=== PATIENT | male | born 1985 | race Caucasian/White ===

== ENCOUNTER 2019-07-22 12:28 | Emergency (ER) | payer MEDICAID, SELFPAY ==
[2019-07-22 12:29] VITALS: BP 209/116; PULSE 99; RESP 16; TEMP 36.3; O2SAT 97; BMI 40.8
[2019-07-22 12:38] VITALS: BP 198/117
--- NOTE | 2019-07-22 12:41 | EKG12_ITS ---
Test Reason : HYPERTENSION Blood Pressure : / mmHG Vent. Rate : 088 BPM Atrial Rate : 088 BPM P-R Int : 144 ms QRS Dur : 096 ms QT Int : 364 ms P-R-T Axes : 055 050 032 degrees QTc Int : 440 ms Normal sinus rhythm Normal ECG Confirmed by HANG PRINGLE ([id number]), magazine editor VLADIMIR DEXTER ([id number]) on 07/26/2019 2:52:27 PM Referred By: MANUEL
[2019-07-22] MEDS: Lisinopril 10 MG Tablet PO (12:51)
[2019-07-22 13:10] LABS: Anion Gap 5 (5-15); BUN 17 mg/dL (7-18); BUN/Creat Ratio 15.2 RATIO (10-20); Calcium,Total 9.4 mg/dL (8.5-10.1); Chloride 106 mmol/L (98-107); Creatinine, Serum 1.12 mg/dL (0.70-1.30); EST Glomerular Filtration Rate 79 mL/min (>60); Est Glom Filt Rate - Afr Amer 96 mL/min (>60); Estimated Creatinine Clearance 95.96 ml/min; Glucose 127 mg/dL (74-106); Potassium 3.9 mmol/L (3.5-5.1); Sodium Level 141 mmol/L (136-145)
--- NOTE | 2019-07-22 13:30 | ED.DCSUM_ITS ---
History of Present Illness Chief Complaint: Hypertension Narrative: Patient presenting for evaluation secondary to headache and concerns for hypertension. Patient reports that he has a family history of hypertension. He states that over the course of the last 3 or 4 weeks he has been dealing with frequent headaches. He associates it with pain in his temples that is throbbing of bilateral and comes and goes. Is also associated with some mild neck pain. Patient states that recently he has been having some issues with photophobia. He denies any nausea or vomiting. He denies any visual deficits. He denies any numbness or weakness. Patient states that he has been having some intermittent issues with shortness of breath, but denies any chest pain associated with it. No abnormal swelling of the legs. Patient is not on any sort of medications. He does smoke as well as use alcohol. Patient reports that he has had decreased sleep recently as he has an 8-week-old child. Review of systems otherwise negative. Past Medical History - Allergies and Home Meds Allergies/Adverse Reactions: Allergies sulfamethoxazole [From ] Allergy (Verified 07/22/19 12:29) Shortness of breath trimethoprim [From ] Allergy (Verified 07/22/19 12:29) Shortness of breath Primary Care Physician: NOT,DEFINED [Primary Care Provider] - Past Medical History: None Smoking Status: Current every day smoker Review of Systems All systems negative except as indicated General: Denies: Chills, Fever, Sweats Eyes: Denies: Visual changes - bilaterally, Diplopia ENT: Denies: Rhinorrhea, Sore throat Cardiovascular: Denies: Chest pain, Palpitations Respiratory: Reports: Dyspnea Gastrointestinal: Denies: Abdominal pain, Nausea, Vomiting, Diarrhea, Melena, Hematochezia Genitourinary: Denies: Dysuria, Hematuria, Frequency Musculoskeletal: Denies: Back pain, Extremity Pain Skin: Denies: Rash, Wounds Neurological: Reports: Headache Physical Exam Vital Signs/Narrative: Vital Signs Temp Pulse Resp BP Pulse Ox 07/22/19 12:38 198/117 H 07/22/19 12:29 97.3 F L 99 16 209/116 H 97 Inital Vital Signs reviewed: Yes General: Well nourished, Well developed, No Acute Distress Head: Normocephalic, Atraumatic Eyes: Perrl, EOMI, - - Normal for endoscopy without any evidence of retinal hemorrhages or papilledema. 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 ENT: Moist mucous membranes, No rhinorrhea Neck: Supple, Nontender Cardiovascular: Regular rate, Regular rhythm, No murmurs Respiratory: No distress, CTA bilaterally, Chest nontender Abdomen: Soft, Nontender, Nondistended, Normal bowel sounds Back: Nontender, Normal Inspection Extremities: Nontender, No edema Skin: Normal color, No rash Neurological: Alert, Oriented x3, Cranial nerves II-XII grossly intact, Normal Strength, Normal Sensation Psychological: Normal affect, Normal Mood Diagnostic/Tx/Re-eval - EKG Initial EKG Interpretation: - - Normal sinus rhythm with a rate of 88. Isoelectric ST segme nts normal T waves. No evidence of acute ischemia or arrhythmia. - Medical Decision Making Patient presented secondary to hypertension. Triage blood pressure was in the 200s, when he came into the room his BP was 198/117. Patient was given 10 mg of oral lisinopril. Work-up for endorgan damage was performed, EKG was found to be negative. Chemistry shows no evidence of kidney injury, troponin found to be negative. Patient's blood pressure is downward trending with a BP of 180/110 upon repeat evaluation at 1330. Patient is still having somewhat of a headache he was given Tylenol. This point he has no signs of endorgan damage and I believe that he requires admission, but especially with his diastolic blood pressure being so high I do believe that he requires treatment with antihypertensives. Patient will be started on lisinopril. He is instructed that he needs to follow-up with primary care to ensure that his blood pressure meds are working adequately. Patient was discharged in stable condition. ED Disposition - Plan for ED Patient: Disposition: Home or Assisted Living Diagnosis: Hypertension Instructions: HYPERTENSION, New (Begin Treatment) Prescriptions: Lisinopril [Zestril] 10 mg PO DAILY #30 tab Prescription Printed Referrals: Lee Melendez Jr. [NON-STAFF] - 1 Week
[2019-07-22 14:17] VITALS: BP 168/112; PULSE 88; RESP 16
== END 2019-07-22 14:18 | disposition home or self-care (01) ==
LOC: ED 13:40
PROVIDERS: Emergency Provider Emergency Medicine
DX: I10 Essential (primary) hypertension (principal); F17.200 Nicotine dependence, unspecified, uncomplicated; Z72.89 Other problems related to lifestyle
CPT/HCPCS: 36415; 80048; 84484; 93005; 99283

== ENCOUNTER → 2020-12-31 10:03 | Outpatient (CLI) | payer MEDICAID, SELFPAY ==
[2020-12-31 11:00] LABS: Hemoglobin 14.9 g/dL (13.0-16.5); Mean Corp Hgb Conc 33.9 g/dL (32-36); Mean Corpuscular Hgb 30.8 pg (27.0-32.0); Mean Corpuscular Volume 91.1 fL (80-94); Mean Platelet Vol. 10.9 fl (6.2-12.0); Platelet Count 157 K/mm3 (150-450); RBC Distribution Width CV 13.3 % (11.6-14.6); RBC Distribution Width SD 44.8 fl (35.1-43.9); Red Blood Count 4.83 M/mm3 (4.6-6.2); White Blood Count 7.7 K/mm3 (4.4-11.0)
[2020-12-31 11:26] LABS: ALB/GLOB Ratio 1.2 RATIO (0.9-2.4); AST(SGOT) 46 U/L (15-37); Alanine Aminotransfer ALT/SGPT 104 U/L (16-61); Albumin, Serum 4.1 g/dL (3.2-5.0); Alkaline Phosphatase 89 U/L (45-117); Anion Gap 7 (5-15); BUN 13 mg/dL (7-18); BUN/Creat Ratio 14.5 RATIO (10-20); Calcium,Total 8.9 mg/dL (8.5-10.1); Chloride 105 mmol/L (98-107); Cholesterol 194 mg/dL (200); EST Glomerular Filtration Rate 102 mL/min (>60); Est Glom Filt Rate - Afr Amer 123 mL/min (>60); Globulin 3.4 g/dL (2.2-4.2); Glucose 107 mg/dL (74-106); High Density Lipoprotein 33 mg/dL; Potassium 3.8 mmol/L (3.5-5.1); Protein, Total 7.5 g/dL (6.4-8.2); Sodium Level 141 mmol/L (136-145); Triglycerides 165 mg/dL; Very Low Density Lipoprotein 33 mg/dL (5-40)
== END ==
PROVIDERS: PCP Nurse Practitioner Family; Referring Provider Nurse Practitioner Family; Visit Provider Nurse Practitioner Family
DX: I10 Essential (primary) hypertension (principal); Z13.220 Encounter for screening for lipoid disorders
CPT/HCPCS: 36415; 80053; 80061; 85027

== ENCOUNTER → 2021-07-08 13:16 | Outpatient (CLI) | payer MEDICAID, SELFPAY ==
[2021-07-08 13:32] LABS: Hematocrit 44.7 % (40-54); Hemoglobin 14.9 g/dL (13.0-16.5); Mean Corp Hgb Conc 33.3 g/dL (32-36); Mean Corpuscular Volume 92.9 fL (80-94); Mean Platelet Vol. 10.4 fl (6.2-12.0); Platelet Count 167 K/mm3 (150-450); RBC Distribution Width CV 13.3 % (11.6-14.6); RBC Distribution Width SD 46.2 fl (35.1-43.9); Red Blood Count 4.81 M/mm3 (4.6-6.2); White Blood Count 7.1 K/mm3 (4.4-11.0)
[2021-07-08 14:11] LABS: ALB/GLOB Ratio 1.1 RATIO (0.9-2.4); AST(SGOT) 61 U/L (15-37); Alanine Aminotransfer ALT/SGPT 128 U/L (16-61); Alkaline Phosphatase 99 U/L (45-117); Anion Gap 4 (5-15); BUN 15 mg/dL (7-18); Calcium,Total 9.2 mg/dL (8.5-10.1); Chloride 109 mmol/L (98-107); Creatinine, Serum 1.07 mg/dL (0.70-1.30); EST Glomerular Filtration Rate 83 mL/min (>60); Est Glom Filt Rate - Afr Amer 100 mL/min (>60); Globulin 3.7 g/dL (2.2-4.2); Glucose 102 mg/dL (74-106); Protein, Total 7.7 g/dL (6.4-8.2); Sodium Level 142 mmol/L (136-145)
== END ==
PROVIDERS: PCP Nurse Practitioner Family; Referring Provider Nurse Practitioner Family; Visit Provider Nurse Practitioner Family
DX: I10 Essential (primary) hypertension (principal); R63.8 Other symptoms and signs concerning food and fluid intake; R94.5 Abnormal results of liver function studies; R73.01 Impaired fasting glucose
CPT/HCPCS: 36415; 80053; 85027

== ENCOUNTER 2021-08-05 09:55 | Outpatient (CLI) | payer MEDICAID, SELFPAY ==
--- NOTE | 2021-08-05 09:58 | US_ITS ---
STUDY: ABDOMINAL ULTRASOUND - RIGHT UPPER QUADRANT REASON FOR VISIT: Male, 35 years old ELEVATED ENZYMES TECHNIQUE: Ultrasound evaluation of the right upper quadrant was performed with real-time and static robles-scale imaging. TECHNICAL QUALITY: Adequate. COMPARISON: None. FINDINGS: Liver: The liver is enlarged and measures 20 cm. There is increased echogenicity consistent with fatty infiltration. The bile ducts are within normal limits. There is hepatic color flow. The direction of portal flow is hepatopetal. There is no demonstrated mass lesion. Gallbladder: Normal distended gallbladder. The gallbladder wall measures 2.1 mm. There is a negative sonographic Gama''s sign. There is no pericholecystic fluid. There are no gallstones. Common Bile Duct (C.B.D.): The common bile duct measures 4 mm. Pancreas: Normal size of the head, body and tail of the pancreas. There is increased echogenicity of the pancreas. There is no demonstrated pancreatic mass or cyst. Right Kidney: Normal size of the right kidney. The right kidney measures 13.2 cm x 6.6 cm x 5.3 cm. Normal renal cortex. The right cortex measures 1.5 cm. There is no demonstrated renal mass or cyst. There is no right hydronephrosis. US/Abdomen Limited IMPRESSION: Hepatomegaly and diffuse fatty infiltration of the liver. Electronically Signed: Xu Villagomez MD at 10:56 EST , Service support ,
== END 2021-08-05 23:59 | disposition short-term general hospital (02) ==
LOC: US 09:56
PROVIDERS: PCP Nurse Practitioner Family; Referring Provider Nurse Practitioner Family; Visit Provider Nurse Practitioner Family
DX: K76.0 Fatty (change of) liver, not elsewhere classified (principal); R16.0 Hepatomegaly, not elsewhere classified; R94.5 Abnormal results of liver function studies
CPT/HCPCS: 76705

== ENCOUNTER → 2022-01-28 | Outpatient (CLI) | payer MEDICAID, SELFPAY ==
[2022-01-28 13:01] LABS: Hematocrit 47.6 % (40-54); Hemoglobin 15.7 g/dL (13.0-16.5); Mean Corpuscular Hgb 30.3 pg (27.0-32.0); Mean Corpuscular Volume 91.9 fL (80-94); Mean Platelet Vol. 11.1 fl (6.2-12.0); Platelet Count 187 K/mm3 (150-450); RBC Distribution Width CV 13.5 % (11.6-14.6); RBC Distribution Width SD 46.4 fl (35.1-43.9); Red Blood Count 5.18 M/mm3 (4.6-6.2); White Blood Count 8.6 K/mm3 (4.4-11.0)
[2022-01-28 13:27] LABS: ALB/GLOB Ratio 1.1 RATIO (0.9-2.4); AST(SGOT) 47 U/L (15-37); Alanine Aminotransfer ALT/SGPT 100 U/L (16-61); Albumin, Serum 3.9 g/dL (3.2-5.0); Alkaline Phosphatase 88 U/L (45-117); Amylase 35 U/L (25-115); Anion Gap 2 (5-15); BUN 10 mg/dL (7-18); BUN/Creat Ratio 11.2 RATIO (10-20); Calcium,Total 8.8 mg/dL (8.5-10.1); Chloride 108 mmol/L (98-107); Cholesterol 191 mg/dL (200); EST Glomerular Filtration Rate 101 mL/min (>60); Est Glom Filt Rate - Afr Amer 123 mL/min (>60); Globulin 3.5 g/dL (2.2-4.2); Glucose 102 mg/dL (74-106); High Density Lipoprotein 35 mg/dL; Lipase 139 U/L (73-393); Potassium 3.8 mmol/L (3.5-5.1); Protein, Total 7.4 g/dL (6.4-8.2); Sodium Level 138 mmol/L (136-145); Triglycerides 147 mg/dL; Very Low Density Lipoprotein 29 mg/dL (5-40)
[2022-01-29 10:34] LABS: ANTINUCLEAR ANTIBODIES DIRECT Negative (Negative)
== END | disposition home or self-care (01) ==
LOC: LAB 12:23
PROVIDERS: PCP Nurse Practitioner Family; Referring Provider Nurse Practitioner Family; Visit Provider Nurse Practitioner Family
DX: K76.0 Fatty (change of) liver, not elsewhere classified (principal); I10 Essential (primary) hypertension; R94.5 Abnormal results of liver function studies; R73.01 Impaired fasting glucose; Z13.220 Encounter for screening for lipoid disorders
CPT/HCPCS: 36415; 80053; 80061; 82150; 83690; 85027; 86038

== ENCOUNTER → 2022-08-06 | Outpatient (CLI) | payer MEDICAID, SELFPAY ==
[2022-08-06 14:19] LABS: ALB/GLOB Ratio 1.2 RATIO (0.9-2.4); AST(SGOT) 50 U/L (15-37); Alanine Aminotransfer ALT/SGPT 102 U/L (16-61); Alkaline Phosphatase 83 U/L (45-117); Anion Gap 2 (5-15); BUN 11 mg/dL (7-18); BUN/Creat Ratio 13.8 RATIO (10-20); Chloride 108 mmol/L (98-107); Cholesterol 205 mg/dL (200); EST Glomerular Filtration Rate 115 mL/min (>60); Est Glom Filt Rate - Afr Amer 140 mL/min (>60); Globulin 3.4 g/dL (2.2-4.2); Glucose 108 mg/dL (74-106); High Density Lipoprotein 39 mg/dL; Potassium 3.8 mmol/L (3.5-5.1); Protein, Total 7.4 g/dL (6.4-8.2); Sodium Level 139 mmol/L (136-145); Triglycerides 113 mg/dL; Very Low Density Lipoprotein 23 mg/dL (5-40)
== END | disposition home or self-care (01) ==
PROVIDERS: PCP Nurse Practitioner Family; Referring Provider Nurse Practitioner Family; Visit Provider Nurse Practitioner Family
DX: I10 Essential (primary) hypertension (principal); K76.0 Fatty (change of) liver, not elsewhere classified; R73.01 Impaired fasting glucose
CPT/HCPCS: 36415; 80053; 80061

== ENCOUNTER → 2023-02-09 | Outpatient (CLI) | payer MEDICAID, SELFPAY ==
[2023-02-09 10:30] LABS: Hemoglobin A1c 5.4 % (3.8-5.6)
[2023-02-09 11:05] LABS: ALB/GLOB Ratio 1.1 RATIO (0.9-2.4); AST(SGOT) 44 U/L (15-37); Alanine Aminotransfer ALT/SGPT 93 U/L (16-61); Albumin, Serum 3.9 g/dL (3.2-5.0); Alkaline Phosphatase 89 U/L (45-117); Anion Gap 4 (5-15); BUN 14 mg/dL (7-18); BUN/Creat Ratio 16.2 RATIO (10-20); Chloride 106 mmol/L (98-107); Cholesterol 183 mg/dL (200); Creatinine, Serum 0.86 mg/dL (0.70-1.30); EST Glomerular Filtration Rate 105 mL/min (>60); Est Glom Filt Rate - Afr Amer 127 mL/min (>60); Globulin 3.5 g/dL (2.2-4.2); Glucose 100 mg/dL (74-106); High Density Lipoprotein 36 mg/dL; Potassium 3.6 mmol/L (3.5-5.1); Protein, Total 7.4 g/dL (6.4-8.2); Sodium Level 137 mmol/L (136-145); Triglycerides 145 mg/dL; Very Low Density Lipoprotein 29 mg/dL (5-40)
== END | disposition home or self-care (01) ==
LOC: LAB 09:29
PROVIDERS: PCP Nurse Practitioner Family; Referring Provider Nurse Practitioner Family; Visit Provider Nurse Practitioner Family
DX: I10 Essential (primary) hypertension (principal); E78.5 Hyperlipidemia, unspecified; K76.0 Fatty (change of) liver, not elsewhere classified; R73.01 Impaired fasting glucose; R74.8 Abnormal levels of other serum enzymes
CPT/HCPCS: 36415; 80053; 80061; 83036

== ENCOUNTER → 2023-08-24 | Outpatient (CLI) | payer MEDICAID, SELFPAY ==
--- OUTSIDE RECORDS SUMMARY | 2023-08-24 12:26 | XMS RPT_ITS | CCD ---
Author Name Unknown Address [address] [place] [address] Organization [facility] Care Team Providers Care Carpenter General Name Role Phone Unavailable Primary Care Provider Gale Valente CNP, Valeriy Ulrich Primary Care Provider Allergies Allergy Classification Reported Allergen(s) Allergy Type Date of Onset Reaction(s) Facility (2 sources) Sulfamethoxazole / Trimethoprim Drug Allergy 1 Other: See Comments [facility] Medications Current Medications Medication Drug Class(es) Dates Sig (Normalized) Sig (Original) cephalexin 500 mg oral capsule (1 source) Cephalosporin Antibacterial Start: 05-10-2021 End: 05-17-2021 take 1 capsule by mouth four times daily cephALEXin (KEFLEX) 500 mg capsule Take 1 capsule by mouth four times daily for 7 days. 28 capsule 0 05/10/2021 05/17/2021 Active Completed/Discontinued Medications Medication Drug Class(es) Dates Sig (Normalized) Sig (Original) amLODIPine 10 mg oral tablet (2 sources) Dihydropyridine Calcium Channel Roger take 1 tablet by mouth once daily amLODIPine (NORVASC) 10 mg tablet Take 10 mg by mouth once daily. 0 Active Problems Problem Classification Problem Date Documented Da te Episodic/Chronic Other ear and sense organ disorders (1 source) Acute otitis externa of left ear; Translations: [Unspecified acute noninfective otitis externa, left ear] Episodic Skin and subcutaneous tissue infections (1 source) Abscess of skin of abdomen; Translations: [Cutaneous abscess of abdominal wall] Episodic Results Test Name Value Interpretation Reference Range Facil ity Vital Signs Date Time Vital Sign Value Performing Clinician Facdayne padilla 01-25-2022 13:53-0400 Body temperature 97.81 [degF] Ayaz Marroquin APRN.ORGANIZATIONAL DEVELOPMENT SPECIALIST Work Phone: [facility] 01-25-2022 13:53-0400 Body weight 128.19 kg Ayaz Pendlebury AUTOMATIC EMBROIDERY MACHINE TENDER.ORGANIZATIONAL DEVELOPMENT SPECIALIST Work Phone: [facility] 01-25-2022 13:53-0400 Diastolic blood pressure 96 mm[Hg] Ayaz Pendlebury AUTOMATIC EMBROIDERY MACHINE TENDER.ORGANIZATIONAL DEVELOPMENT SPECIALIST Work Phone: [facility] 01-25-2022 13:53-0400 Heart rate 82 /min Ayaz Pendlebury AUTOMATIC EMBROIDERY MACHINE TENDER.ORGANIZATIONAL DEVELOPMENT SPECIALIST Work Phone: [facility] 01-25-2022 13:53-0400 Respiratory rate 21 /min Ayaz Pendlebury AUTOMATIC EMBROIDERY MACHINE TENDER.ORGANIZATIONAL DEVELOPMENT SPECIALIST Work Phone: [facility] 01-25-2022 13:53-0400 SaO2% (BldA) [Mass fraction] 98 % Ayaz Pendlebury AUTOMATIC EMBROIDERY MACHINE TENDER.ORGANIZATIONAL DEVELOPMENT SPECIALIST Work Phone: [facility] 01-25-2022 13:53-0400 Systolic blood pressure 124 mm[Hg] Ayaz Pendlebury AUTOMATIC EMBROIDERY MACHINE TENDER.ORGANIZATIONAL DEVELOPMENT SPECIALIST Work Phone: [facility] 05-10-2021 18:10-0400 Body temperature 98.49 [degF] Ayaz Pendlebury AUTOMATIC EMBROIDERY MACHINE TENDER.ORGANIZATIONAL DEVELOPMENT SPECIALIST Work Phone: [facility] 05-10-2021 18:10-0400 Body weight 130.82 kg Ayaz Pendlebury AUTOMATIC EMBROIDERY MACHINE TENDER.ORGANIZATIONAL DEVELOPMENT SPECIALIST Work Phone: [facility] 05-10-2021 18:10-0400 Diastolic blood pressure 88 mm[Hg] Ayaz Pendlebury AUTOMATIC EMBROIDERY MACHINE TENDER.ORGANIZATIONAL DEVELOPMENT SPECIALIST Work Phone: [facility] 05-10-2021 18:10-0400 Heart rate 95 /min Ayaz Pendlebury AUTOMATIC EMBROIDERY MACHINE TENDER.ORGANIZATIONAL DEVELOPMENT SPECIALIST Work Phone: [facility] 05-10-2021 18:10-0400 Respiratory rate 16 /min Ayaz Pendlebury AUTOMATIC EMBROIDERY MACHINE TENDER.ORGANIZATIONAL DEVELOPMENT SPECIALIST Work Phone: [facility] 05-10-2021 18:10-0400 SaO2% (BldA) [Mass fraction] 98 % Ayaz Pendlebury AUTOMATIC EMBROIDERY MACHINE TENDER.ORGANIZATIONAL DEVELOPMENT SPECIALIST Work Phone: [facility] 05-10-2021 18:10-0400 Systolic blood pressure 146 mm[Hg] Ayaz Tellocelina IGNACIO.BRIJESH Work Phone: [facility] Encounters Encounter Date Encounter Type Care Provider Facility Start: 01-25-2022 End: 01-25-2022 Patient encounter procedure Ayaz Martinezchristina IGNACIO.BRIJESH Work Phone: [facility] Plan of Treatment Date Care Activity Detail Author Start: 03-27-2022 Influenza vaccination INFLUENZA (#1) [facility] Start: 03-27-2021 Influenza vaccination INFLUENZA (#1) [facility] Start: 10-01-2019 LIPID SCREEN LIPID SCREEN [facility] Start: 10-01-2003 Urine microalbumin profile DTAP,TDAP,TD (1 - Tdap) [facility] Start: 2002 HEPATITIS C SCREENING HEPATITIS C SC REENING [facility] Start: 2002 HIV SCREENING HIV SCREENING [facility] Start: 1996 Adult depression screening assessment DEPRESSION SCREENING [facility] Start: 1996 COVID-19 VACCINE (1) COVID-19 VACCIN E (1) [facility] Start: 1990 PNEUMOCOCCAL (1 - PCV) PNEUMOCOCCAL (1 - PCV) [facility] Start: 04-02-1985 COVID-19 VACCINE (#1) COVID-19 VACCI NE (#1) [facility] Bacteria identified in Wound by Culture WOUND CULTURE AND GRAM STAIN Microbiology Routine Ordered: 05/10/2021 [facility] Payers Date Payer Category Payer Medicaid [id number] Social History Date Type Detail Facility Start: 09-05-2010 End: 05-10-2021 Tobacco smoking status NHIS Current every day smoker [facility] Start: 05-10-2021 End: 01-25-2022 Cigarettes smoked current (pack per day) - Reported [facility] Start: 09-05-2010 End: 05-10-2021 Tobacco use and exposure Never used [facility] Start: 05-10-2021 End: 01-25-2022 Alcohol intake Current drinker of alcohol (finding) [facility] Start: 1985 Sex Assigned At Not on file [facility] Exposure to SARS-CoV -2 (event) Not sure [facility] Progress note 01-25-2022 Note Date & Type Note Facility 01-25-2022 Note HNO ID: [id number] Author: Ayaz Marroquin APRN.ORGANIZATIONAL DEVELOPMENT SPECIALIST Service: ? Author Type: Nurse Practitioner Type: Progress Notes Filed: 01/25/2022 2:18 PM Note Text: Subjective HPI Nontoxic-appearing male presents urgent care chief complaint left ear pain. Duration of symptoms 3 days. Associated symptoms left ear pain. Patient states pain has worsened over the last few days. States he has been swimming a lot recently. States area is most painful if he pushes over his tragus. Denies any OTC medications. Denies any fever body aches chills nausea vomiting abdominal pain otorrhea ear trauma difficulty hearing decreased range of motion of neck or rashes. Past medical history prescription medication use allergies reviewed. .Patient presents with: Ear Pain: left ear pain x 3 days PAST MEDICAL HISTORY Diagnosis Date - NEGATIVE MEDICAL HISTORY PAST SURGICAL HISTORY Procedure Laterality Date - NONE ALLERGIES Septra [Sulfamethoxazole-Trimethoprim] MEDICATIONS lisinopril (ZESTRIL, PRINIVIL) 40 mg tablet Take 40 mg by mouth once daily. amLODIPine (NORVASC) 10 mg tablet Take 10 mg by mouth once daily. hydroCHLOROthiazide (HYDRODIURIL, ESIDRIX) 12.5 mg tablet Take 12.5 mg by mouth once daily. ofloxacin (FLOXIN) 0.3 % otic solution Use 10 Drops in the left ear once daily for 7 days. loratadine (CLARITIN) 10 mg tablet Take 1 tablet by mouth once daily. fluticasone (FLONASE) 50 mcg/actuation nasal spray Use 1 [place] in each nostril once daily. Rinse mouth after use. ciprofloxacin (CIPRO) 500 mg ORAL tablet Take one(1) tablet twice daily. ciprofloxacin 250 mg ORAL tablet Take one(1) tablet two(2) times daily. FAMILY HISTORY Problem Relation Age of Onset - Diabetes Maternal Grandmother - Hypertension Father Social History Tobacco Use - Smoking status: Current Every Day Smoker Packs/day: 0.50 Years: 8.00 Pack years: 4.00 - Smokeless tobacco: Never Used Vaping Use - Vaping Use: current everyday user - Substances: CBD Substance Use Topics - Alcohol use: Yes Alcohol/week: 60.0 standard drinks Types: 24 Cans of Beer (12oz) per week - Drug use: Yes Frequency: 7.0 times per week Types: Marijuana Comment: uses daily, in evening BP 124/96 Pulse 82 Temp 36.6 ?C (97.8 ?F) Resp 21 Wt 128.2 kg (282 lb 9.6 oz) SpO2 98% BMI 39.13 kg/m? Review of Systems Constitutional: Negative for chills, fever and malaise/fatigue. HENT: Positive for ear pain. Negative for congestion, ear discharge, hearing loss, sinus pain, sore throat and tinnitus. Eyes: Negative for blurred vision, pain, discharge and redness. Respiratory: Negative for cough, hemoptysis, sputum production, shortness of breath, wheezing and stridor. Cardiovascular: Negative for chest pain. Gastrointestinal: Negative for abdominal pain, diarrhea, nausea and vomiting. Musculoskeletal: Negative for myalgias. Skin: Negative for itching and rash. Neurological: Negative for dizziness and headaches. Objective Physical Exam Vitals and nursing note reviewed. Constitutional: General: He is not in acute distress. Appearance: He is not diaphoretic. HENT: Head: Normocephalic and atraumatic. Jaw: No trismus, tenderness, swelling or pain on movement. Right Ear: Hearing, tympanic membrane, ear canal and external ear normal. No decreased hearing noted. No drainage, swelling or tenderness. No mastoid tenderness. Tympanic membrane is not perforated, erythematous or bulging. Left Ear: Hearing, tympanic membrane, ear canal and external ear normal. No decreased hearing noted. Swelling and tenderness present. No drainage. No mastoid tenderness. Tympanic membrane is not perforated, erythematous or bulging. Ears: Comments: Tragal tenderness left ear. Erythema edema auditory canal left. No external erythema edema. No otorrhea. Nose: Nose normal. Mouth/Throat: Mouth: Mucous membranes are moist. Pharynx: Oropharynx is clear. Uvula midline. No oropharyngeal exudate, posterior oropharyngeal erythema or uvula swelling. Tonsils: No tonsillar abscesses. Eyes: General: Right eye: No discharge. Left eye: No discharge. Conjunctiva/sclera: Conjunctivae normal. Pupils: Pupils are equal, round, and reactive to light. Cardiovascular: Rate and Rhythm: Normal rate and regular rhythm. Heart sounds: Normal heart sounds. Pulmonary: Effort: Pulmonary effort is normal. No tachypnea, accessory muscle usage or respiratory distress. Breath sounds: Normal breath sounds. No stridor. No wheezing, rhonchi or rales. Abdominal: Palpations: Abdomen is soft. Tenderness: There is no abdominal tenderness. Musculoskeletal: General: No tenderness. Normal range of motion. Cervical back: Normal range of motion and neck supple. No rigidity or tenderness. Lymphadenopathy: Head: Right side of head: No submental, submandibular, tonsillar, preauricular, posterior auricular or occipital adenopathy. Left side (more content not included)... [facility] History of Present illness Narrative 01-25-2022 Ayaz Marroquin APRN.ORGANIZATIONAL DEVELOPMENT SPECIALIST - 01/25/2022 2:06 PM EDT Note Date & Type Note Facility 01-25-2022 History of Presen t illness Narrative Subjective HPI Nontoxic-appearing male presents urgent care chief complaint left ear pain. Duration of symptoms 3 days. Associated symptoms left ear pain. Patient states pain has worsened over the last few days. States he has been swimming a lot recently. States area is most painful if he pushes over his tragus. Denies any OTC medications. Denies any fever body aches chills nausea vomiting abdominal pain otorrhea ear trauma difficulty hearing decreased range of motion of neck or rashes. Past medical history prescription medication use allergies reviewed. .Patient presents with: Ear Pain: left ear pain x 3 days PAST MEDICAL HISTORY Diagnosis Date NEGATIVE MEDICAL HISTORY PAST SURGICAL HISTORY Procedure Laterality Date NONE ALLERGIES Septra [Sulfamethoxazole-Trimethoprim] MEDICATIONS lisinopril (ZESTRIL, PRINIVIL) 40 mg tablet Take 40 mg by mouth once daily. amLODIPine (NORVASC) 10 mg tablet Take 10 mg by mouth once daily. hydroCHLOROthiazide (HYDRODIURIL, ESIDRIX) 12.5 mg tablet Take 12.5 mg by mouth once daily. ofloxacin (FLOXIN) 0.3 % otic solution Use 10 Drops in the left ear once daily for 7 days. loratadine (CLARITIN) 10 mg tablet Take 1 tablet by mouth once daily. fluticasone (FLONASE) 50 mcg/actuation nasal spray Use 1 [place] in each nostril once daily. Rinse mouth after use. ciprofloxacin (CIPRO) 500 mg ORAL tablet Take one(1) tablet twice daily. ciprofloxacin 250 mg ORAL tablet Take one(1) tablet two(2) times daily. FAMILY HISTORY Problem Relation Age of Onset Diabetes Maternal Grandmother Hypertension Father Social History Tobacco Use Smoking status: Current Every Day Smoker Packs/day: 0.50 Years: 8.00 Pack years: 4.00 Smokeless tobacco: Never Used Vaping Use Vaping Use: current everyday user Substances: CBD Substance Use Topics Alcohol use: Yes Alcohol/week: 60.0 standard drinks Types: 24 Cans of Beer (12oz) per week Drug use: Yes Frequency: 7.0 times per week Types: Marijuana Comment: uses daily, in evening BP 124/96 Pulse 82 Temp 36.6 C (97.8 F) Resp 21 Wt 128.2 kg (282 lb 9.6 oz) SpO2 98% BMI 39.13 kg/m Review of Systems Constitutional: Negative for chills, fever and malaise/fatigue. HENT: Positive for ear pain. Negative for congestion, ear discharge, hearing loss, sinus pain, sore throat and tinnitus. Eyes: Negative for blurred vision, pain, discharge and redness. Respiratory: Negative for cough, hemoptysis, sputum production, shortness of breath, wheezing and stridor. Cardiovascular: Negative for chest pain. Gastrointestinal: Negative for abdominal pain, diarrhea, nausea and vomiting. Musculoskeletal: Negative for myalgias. Skin: Negative for itching and rash. Neurological: Negative for dizziness and headaches. Objective Physical Exam Vitals and nursing note reviewed. Constitutional: General: He is not in acute distress. Appearance: He is not diaphoretic. HENT: Head: Normocephalic and atraumatic. Jaw: No trismus, tenderness, swelling or pain on movement. Right Ear: Hearing, tympanic membrane, ear canal and external ear normal. No decreased hearing noted. No drainage, swelling or tenderness. No mastoid tenderness. Tympanic membrane is not perforated, erythematous or bulging. Left Ear: Hearing, tympanic membrane, ear canal and external ear normal. No decreased hearing noted. Swelling and tenderness present. No drainage. No mastoid tenderness. Tympanic membrane is not perforated, erythematous or bulging. Ears: Comments: Tragal tenderness left ear. Erythema edema auditory canal left. No external erythema edema. No otorrhea. Nose: Nose normal. Mouth/Throat: Mouth: Mucous membranes are moist. Pharynx: Oropharynx is clear. Uvula midline. No oropharyngeal exudate, posterior oropharyngeal erythema or uvula swelling. Tonsils: No tonsillar abscesses. Eyes: General: Right eye: No discharge. Left eye: No discharge. Conjunctiva/sclera: Conjunctivae normal. Pupils: Pupils are equal, round, and reactive to light. Cardiovascular: Rate and Rhythm: Normal rate and regular rhythm. Heart sounds: Normal heart sounds. Pulmonary: Effort: Pulmonary effort is normal. No tachypnea, accessory muscle usage or respiratory distress. Breath sounds: Normal breath sounds. No stridor. No wheezing, rhonchi or rales. Abdominal: Palpations: Abdomen is soft. Tenderness: There is no abdominal tenderness. Musculoskeletal: General: No tenderness. Normal range of motion. Cervical back: Normal range of motion and neck supple. No rigidity or tenderness. Lymphadenopathy: Head: Right side of head: No submental, submandibular, tonsillar, preauricular, posterior auricular or occipital adenopathy. Left side of head: No submental, submandibular, tonsillar, preauricular, posterior auricular or occipital adenopathy. Cervical: No cervical adenopathy. Right cervical: No superficial or posterior cervical adenopathy. Left cervical: No superficial or posterior cervical adenopathy. Skin: General: Skin is warm and dry. Findings: No rash. Neurological: Mental Status: He is alert and oriented to person, place, and time. ASSESSMENT/PLAN: 1. Acute otitis externa of left ear, unspecified type - ICD9: 380.10, ICD10: H60.502 Patient diagnosed with otitis externa of left ear. Will use otic drops as prescribed. Red flags for reevaluation discussed. Patient was educated on supportive therapies. Patient will follow up with primary care provider as needed. Patient was instructed to immediately proceed to emergency room for any new, worsening, or symptoms lasting longer than anticipated. The patient's clinical presentation is otherwise unremarkable at this time. Based on exam and clinical finding, the patient is stable for discharge. Plan of care was discussed with patient. Patient verbalizes understanding and agrees to plan of care. This note was generated using Verimatrix software. It may contain errors in wording, punctuation, or spelling. Ayaz Marroquin APRN.ORGANIZATIONAL DEVELOPMENT SPECIALIST documented in this encounter [facility] Progress note 05-20-2021 Note Date & Type Note Facility 05-20-2021 Note HNO ID: [id number] Author: Sujey Marques MD Service: ? Author Type: Physician Type: Progress Notes Filed: 05/23/2021 4:50 PM Note Text: HISTORY AND PHYSICAL Narendra Singh 1985 REFERRING PHYSICIAN: Ayaz Marroquin AP* CHIEF COMPLAINT: Consult and Cyst HPI: The patient is a 35 year old male who presents with boil of abdominal wall. He has noted this for about a week He has history of skin infections in this area, usually treated with antibiotics, but still feels hard nodule in the area. He states that he squeezed out large amount of purulent material yesterday. He has been on a round of antibiotics. He denies fevers. He denies diabetes. He admits to cigarettes use. PAST MEDICAL HISTORY Diagnosis Date - NEGATIVE MEDICAL HISTORY TOB use Morbid obesity PAST SURGICAL HISTORY Procedure Laterality Date - NONE Current Outpatient Medications Medication Sig - cephALEXin (KEFLEX) 500 mg capsule Take 500 mg by mouth four times daily. - lisinopril (ZESTRIL, PRINIVIL) 40 mg tablet Take 40 mg by mouth once daily. - amLODIPine (NORVASC) 10 mg tablet Take 10 mg by mouth once daily. - hydroCHLOROthiazide (HYDRODIURIL, ESIDRIX) 12.5 mg tablet Take 12.5 mg by mouth once daily. - ciprofloxacin (CIPRO) 500 mg ORAL tablet Take one(1) tablet twice daily. (Patient not taking: Reported on 05/10/2021) - ciprofloxacin 250 mg ORAL tablet Take one(1) tablet two(2) times daily. (Patient not taking: Reported on 05/10/2021) ALLERGIES: Septra [Sulfamethoxazole-Trimethoprim] PERSONAL HISTORY: Social History Tobacco Use - Smoking status: Current Every Day Smoker Packs/day: 0.50 Years: 8.00 Pack years: 4.00 - Smokeless tobacco: Never Used Vaping Use - Vaping Use: current everyday user - Substances: CBD Substance Use Topics - Alcohol use: Yes Alcohol/week: 60.0 standard drinks Types: 24 Cans of Beer (12oz) per week - Drug use: Yes Frequency: 7.0 times per week Types: Marijuana Comment: uses daily, in evening FAMILY HISTORY Problem Relation Age of Onset - Diabetes Maternal Grandmother - Hypertension Father The review of systems data was entered by the nurse and reviewed by me Nursing Notes: Sindhu Christensen RN 05/20/2021 1:57 PM Signed REVIEW OF SYSTEMS: General: The patient denies fatigue, denies weight loss, denies weight gain, denies feeling hot, and denies feelings of cold. Eyes: The patient denies glaucoma, denies eye injury/surgery, does not wear glasses or contacts. Ear/Nose/Throat: The patient denies allergies, denies hayfever, denies ear infections, and denies bloody noses. Cardiovascular: The patient denies chest pain, denies heart disease, NOTES high blood pressure,denies cardiac stent, denies prior heart attack, denies irregular heart beat, denies high cholesterol, denies poor circulation, denies heart failure, other cardiac issues, denies claudication, denies cold feet, denies peripheral arterial stent. Respiratory: The patient denies tuberculosis, denies pneumonia, denies frequent cough, denies pulmonary embolism, denies shortness of breath, and denies coughing up blood. Gastrointestinal: The patient denies difficulty swallowing, denies acid reflux, denies ulcers, denies vomiting, denies jaundice/hepatitis, denies gallbladder problems, denies black or tarry stools, denies hemorrhoids, denies bleeding from rectum, denies diverticulitis, denies constipation, denies diarrhea, denies loss of stool control, and denies hernias. Kidney/Bladder: The patient denies kidney stones, denies urine infections, and denies bloody urine. Skin: The patient denies a history of skin cancer, denies bleeding/changing moles, and denies a history of skin rash. Neurologic: The patient denies a history of epilepsy/convulsions, NOTES headaches, denies head/spinal injuries, and denies stroke/TIA. Psychiatric: The patient denies psychiatric medications, denies depression, and denies voices, denies substance abuse. Endocrine: The patient denies thyroid disorders, denies diabetes, and denies hormonal problems. Hematologic: The patient denies a history of bruising, denies bleeding, and denies anemia, denies blood clots. Infections: The patient denies a history of measles and mumps, denies rheumatic fever, and denies sexually transmitted diseases. Musculoskeletal: The patient denies back pain/injury, denies back problems, denies sciatica, denies knee/foot trouble, denies arthritis, or denies gout. Last Colonoscopy: N/A Sindhu Christensen RN PHYSICAL EXAMINATION: General: The patient is 35 year old male, well nourished, well hydrated in no acute distress. The patient is oriented to time, place, and person. VITALS: Pulse 92, temperature 36.8 ?C (98.2 ?F), temperature source Temporal, resp. rate 15, height 181 cm (5' 11.26 ), weight 131.1 kg (289 lb), SpO2 96 %. Body mass index is 40.01 kg/m?. Head ? Normocephalic. EOM intact wit (more content not included)... [facility] Progress note 05-20-2021 Note Date & Type Note Facility 05-20-2021 Note HNO ID: [id number] Author: Sindhu Christensen RN Service: ? Author Type: Registered Nurse Type: Progress Notes Filed: 05/23/2021 4:50 PM Note Text: Has been on keflex since last Thursday, last day is today. Sindhu Christensen RN [facility] Progress note 05-10-2021 Note Date & Type Note Facility 05-10-2021 Note HNO ID: [id number] Author: Ayaz Marroquin APRN.BRIJESH Service: ? Author Type: Nurse Practitioner Type: Progress Notes Filed: 05/10/2021 6:49 PM Note Text: Subjective HPI Nontoxic male presents urgent care chief complaint groin/belt line boils. Duration of symptoms 1 week. Associated symptoms pain and slight drainage. Patient states history of boils and abscesses this is similar. States has had these multiple times. Has been successfully treated with Keflex. Denies history of MRSA. Denies any systemic symptoms. Denies any significant pain. No OTC medication use. Denies any fever nausea vomiting abdominal pain chest pain shortness of breath body aches or chills no change in bowel or bladder habit. Past medical history prescription medication use allergies reviewed .Patient presents with: Derm Problem: boil in waistline x 1 week PAST MEDICAL HISTORY Diagnosis Date - NEGATIVE MEDICAL HISTORY PAST SURGICAL HISTORY Procedure Laterality Date - NONE ALLERGIES Septra [Sulfamethoxazole-Trimethoprim] MEDICATIONS lisinopril (ZESTRIL, PRINIVIL) 40 mg tablet Take 40 mg by mouth once daily. amLODIPine (NORVASC) 10 mg tablet Take 10 mg by mouth once daily. hydroCHLOROthiazide (HYDRODIURIL, ESIDRIX) 12.5 mg tablet Take 12.5 mg by mouth once daily. ciprofloxacin (CIPRO) 500 mg ORAL tablet Take one(1) tablet twice daily. ciprofloxacin 250 mg ORAL tablet Take one(1) tablet two(2) times daily. FAMILY HISTORY Problem Relation Age of Onset - Diabetes Maternal Grandmother - Hypertension Father Social History Tobacco Use - Smoking status: Current Every Day Smoker Packs/day: 0.50 Years: 8.00 Pack years: 4.00 - Smokeless tobacco: Never Used Substance Use Topics - Alcohol use: Yes Alcohol/week: 60.0 standard drinks Types: 24 Cans of Beer (12oz) per week - Drug use: No BP 146/88 Pulse 95 Temp 36.9 ?C (98.5 ?F) Resp 16 Wt 130.8 kg (288 lb 6.4 oz) SpO2 98% Review of Systems Constitutional: Negative for chills, fever and malaise/fatigue. HENT: Negative for congestion, ear discharge, ear pain, sinus pain and sore throat. Eyes: Negative for blurred vision, pain, discharge and redness. Respiratory: Negative for cough, sputum production, shortness of breath, wheezing and stridor. Cardiovascular: Negative for chest pain. Gastrointestinal: Negative for abdominal pain, diarrhea, nausea and vomiting. Musculoskeletal: Negative for myalgias. Skin: Negative for itching and rash. Neurological: Negative for dizziness and headaches. Objective Physical Exam Constitutional: General: He is not in acute distress. Appearance: He is not diaphoretic. HENT: Head: Normocephalic. Mouth/Throat: Mouth: Mucous membranes are moist. Pharynx: Oropharynx is clear. No oropharyngeal exudate or posterior oropharyngeal erythema. Eyes: Conjunctiva/sclera: Conjunctivae normal. Pupils: Pupils are equal, round, and reactive to light. Cardiovascular: Rate and Rhythm: Normal rate and regular rhythm. Heart sounds: Normal heart sounds. Pulmonary: Effort: Pulmonary effort is normal. No tachypnea, accessory muscle usage or respiratory distress. Breath sounds: Normal breath sounds. No stridor. Abdominal: Palpations: Abdomen is soft. Tenderness: There is no abdominal tenderness. Musculoskeletal: Cervical back: Normal range of motion and neck supple. No rigidity or tenderness. Lymphadenopathy: Cervical: No cervical adenopathy. Skin: General: Skin is warm and dry. Comments: A 1 cm x 1 cm area of erythema noted around patient's belt line. There is some induration. Slight drainage when pressing over this area. No fluctuance. No adenopathy. No remote redness. Neurological: Mental Status: He is alert and oriented to person, place, and time. ASSESSMENT/PLAN: 1. Abscess of skin of abdomen - ICD9: 682.2, ICD10: L02.211 Patient diagnosed with skin abscess. Will place patient on Keflex has used this in the past good success. Patient states history of abscesses in the past no history of MRSA. Will place a order for general surgery. Patient will schedule follow-up appointment. Patient was educated on supportive therapies. Patient will follow up with primary care provider as needed. Patient was instructed to immediately proceed to emergency room for any new, worsening, or symptoms lasting longer than anticipated. The patient's clinical presentation is otherwise unremarkable at this time. Based on exam and clinical finding, the patient is stable for discharge. Plan of care was discussed with patient. Patient verbalizes understanding and agrees to plan of care. This note was generated using Verimatrix software. It may contain errors in wording, punctuation, or spelling. Ayaz Marroquin APRN.BRIJESH [facility] History of Present illness Narrative 05-10-2021 Ayaz Marroquin APRN.BRIJESH - 05/10/2021 6:29 PM EDT Note Date & Type Note Facility 05-10-2021 History of Presen t illness Narrative Images from the original note were not included. Subjective HPI Nontoxic male presents urgent care chief complaint groin/belt line boils. Duration of symptoms 1 week. Associated symptoms pain and slight drainage. Patient states history of boils and abscesses this is similar. States has had these multiple times. Has been successfully treated with Keflex. Denies history of MRSA. Denies any systemic symptoms. Denies any significant pain. No OTC medication use. Denies any fever nausea vomiting abdominal pain chest pain shortness of breath body aches or chills no change in bowel or bladder habit. Past medical history prescription medication use allergies reviewed .Patient presents with: Derm Problem: boil in waistline x 1 week PAST MEDICAL HISTORY Diagnosis Date NEGATIVE MEDICAL HISTORY PAST SURGICAL HISTORY Procedure Laterality Date NONE ALLERGIES Septra [Sulfamethoxazole-Trimethoprim] MEDICATIONS lisinopril (ZESTRIL, PRINIVIL) 40 mg tablet Take 40 mg by mouth once daily. amLODIPine (NORVASC) 10 mg tablet Take 10 mg by mouth once daily. hydroCHLOROthiazide (HYDRODIURIL, ESIDRIX) 12.5 mg tablet Take 12.5 mg by mouth once daily. ciprofloxacin (CIPRO) 500 mg ORAL tablet Take one(1) tablet twice daily. ciprofloxacin 250 mg ORAL tablet Take one(1) tablet two(2) times daily. FAMILY HISTORY Problem Relation Age of Onset Diabetes Maternal Grandmother Hypertension Father Social History Tobacco Use Smoking status: Current Every Day Smoker Packs/day: 0.50 Years: 8.00 Pack years: 4.00 Smokeless tobacco: Never Used Substance Use Topics Alcohol use: Yes Alcohol/week: 60.0 standard drinks Types: 24 Cans of Beer (12oz) per week Drug use: No BP 146/88 Pulse 95 Temp 36.9 C (98.5 F) Resp 16 Wt 130.8 kg (288 lb 6.4 oz) SpO2 98% Review of Systems Constitutional: Negative for chills, fever and malaise/fatigue. HENT: Negative for congestion, ear discharge, ear pain, sinus pain and sore throat. Eyes: Negative for blurred vision, pain, discharge and redness. Respiratory: Negative for cough, sputum production, shortness of breath, wheezing and stridor. Cardiovascular: Negative for chest pain. Gastrointestinal: Negative for abdominal pain, diarrhea, nausea and vomiting. Musculoskeletal: Negative for myalgias. Skin: Negative for itching and rash. Neurological: Negative for dizziness and headaches. Objective Physical Exam Constitutional: General: He is not in acute distress. Appearance: He is not diaphoretic. HENT: Head: Normocephalic. Mouth/Throat: Mouth: Mucous membranes are moist. Pharynx: Oropharynx is clear. No oropharyngeal exudate or posterior oropharyngeal erythema. Eyes: Conjunctiva/sclera: Conjunctivae normal. Pupils: Pupils are equal, round, and reactive to light. Cardiovascular: Rate and Rhythm: Normal rate and regular rhythm. Heart sounds: Normal heart sounds. Pulmonary: Effort: Pulmonary effort is normal. No tachypnea, accessory muscle usage or respiratory distress. Breath sounds: Normal breath sounds. No stridor. Abdominal: Palpations: Abdomen is soft. Tenderness: There is no abdominal tenderness. Musculoskeletal: Cervical back: Normal range of motion and neck supple. No rigidity or tenderness. Lymphadenopathy: Cervical: No cervical adenopathy. Skin: General: Skin is warm and dry. Comments: A 1 cm x 1 cm area of erythema noted around patient's belt line. There is some induration. Slight drainage when pressing over this area. No fluctuance. No adenopathy. No remote redness. Neurological: Mental Status: He is alert and oriented to person, place, and time. ASSESSMENT/PLAN: 1. Abscess of skin of abdomen - ICD9: 682.2, ICD10: L02.211 Patient diagnosed with skin abscess. Will place patient on Keflex has used this in the past good success. Patient states history of abscesses in the past no history of MRSA. Will place a order for general surgery. Patient will schedule follow-up appointment. Patient was educated on supportive therapies. Patient will follow up with primary care provider as needed. Patient was instructed to immediately proceed to emergency room for any new, worsening, or symptoms lasting longer than anticipated. The patient's clinical presentation is otherwise unremarkable at this time. Based on exam and clinical finding, the patient is stable for discharge. Plan of care was discussed with patient. Patient verbalizes understanding and agrees to plan of care. This note was generated using Verimatrix software. It may contain errors in wording, punctuation, or spelling. Ayaz Marroquin APRN.BRIJESH documented in this encounter [facility] Evaluation note Note Date & Type Note Facility documented in this encounter [facility] Evaluation note Note Date & Type Note Facility documented in this encounter [facility] Reason for Referral Status Reason Specialty Diagnoses / Procedures Referred By Contact Referred To Contact Authorized PCP Requested Referral General Surgery Diagnoses Abscess of skin of abdomen Procedures CONSULT TO GENERAL SURGERY NEW PATIENT VISIT LEVEL 5 Ayaz Marroquin APRN.ORGANIZATIONAL DEVELOPMENT SPECIALIST [address] [place] [address] Summary Purpose Family History No Family History Records Found Advance Directives No Advanced Directives Records Found Additional Source Comments Source Comments (unrecognize d section and content) In the event this informatio n is protected by the Federal Confidentiality of Alcohol and Drug Abuse Patient Records regulations: The Federal rules restrict any use of the information to criminally investigate or prosecute any alcohol or drug abuse patient[facility] event this information is protected by the Federal Confidentiality of Alcohol and Drug Abuse Patient Records regulations: The Federal rules restrict any use of the information to criminally investigate or prosecute any alcohol or drug abuse patient.[facility] Reason for Visit (unrecogniz ed section and content) Reason Comments Ear Pain left ear pain x 3 da ys Care Teams (unrecognized sec tion and content) (unrecognized sect ion and content) No Status Records Found INFORMATION SOURCE (unrecogn ized section and content) FOR RECORDS PERTAINING TO PATIENTS WHO ARE OR HAVE BEEN ENROLLED IN A CHEMICAL DEPENDENCY/SUBSTANCEABUSE PROGRAM, SOME INFORMATION MAY BE OMITTED. This clinical summary was aggregated from multiple sources. Caution should be exercised in using it in the provision of clinical care. This summary normalizes information from multiple sources, and as a consequence, information in this document may materially change the coding, format and clinical context of patient data. In addition, data may be omitted in some cases. CLINICAL DECISIONS SHOULD BE BASED ON THE PRIMARY CLINICAL RECORDS. [facility] [employer] [facility]. provides no warranty or guarantee of the accuracy or completeness of information in this document.
[2023-08-24 13:20] LABS: ALB/GLOB Ratio 1.1 RATIO (0.9-2.4); AST(SGOT) 53 U/L (15-37); Alanine Aminotransfer ALT/SGPT 101 U/L (16-61); Alkaline Phosphatase 93 U/L (45-117); Anion Gap 3 (5-15); BUN 15 mg/dL (7-18); BUN/Creat Ratio 16.6 RATIO (10-20); Calcium,Total 9.2 mg/dL (8.5-10.1); Chloride 109 mmol/L (98-107); Cholesterol 209 mg/dL (200); EST Glomerular Filtration Rate 100 mL/min (>60); Est Glom Filt Rate - Afr Amer 121 mL/min (>60); Globulin 3.6 g/dL (2.2-4.2); Glucose 105 mg/dL (74-106); High Density Lipoprotein 43 mg/dL; Potassium 3.6 mmol/L (3.5-5.1); Protein, Total 7.6 g/dL (6.4-8.2); Sodium Level 139 mmol/L (136-145); Triglycerides 103 mg/dL; Very Low Density Lipoprotein 21 mg/dL (5-40)
[2023-08-24 14:40] LABS: Hemoglobin A1c 5.5 % (3.8-5.6)
== END | disposition home or self-care (01) ==
LOC: LAB 11:51
PROVIDERS: PCP Nurse Practitioner Family; Visit Provider Nurse Practitioner Family
DX: R73.01 Impaired fasting glucose (principal); E78.5 Hyperlipidemia, unspecified
CPT/HCPCS: 36415; 80053; 80061; 83036

== ENCOUNTER 2024-05-15 10:39 | Emergency (ER) | payer MEDICAID, SELFPAY ==
[2024-05-15 10:39] VITALS: BP 165/105; PULSE 108; RESP 16; TEMP 36.4; O2SAT 100; BMI 38.0
[2024-05-15 11:07] VITALS: O2SAT 98
--- NOTE | 2024-05-15 11:33 | RAD_ITS ---
HISTORY: cough hemoptysis. TECHNIQUE: XR Chest 2 Views. COMPARISON: 01/07/2005. FINDINGS: CARDIOMEDIASTINAL BORDERS: Cardiac silhouette within normal limits in size. Mediastinal contour unremarkable. LUNGS: Mild lingular and left lower lobe opacity. PLEURA: No pleural effusion or pneumothorax seen. OSSEOUS STRUCTURES: Unremarkable. RAD/Chest PA and Lateral IMPRESSION: Mild left basilar opacity, concerning for pneumonia. Electronically Signed: Maria Antonia Santiago MD at 12:08 EDT ,
--- NOTE | 2024-05-15 11:36 | EX.ED.DYSGE1 ---
HPI History of Present Illness Chief Complaint: Cough Informant: patient Narrative Narrative: 38-year-old male presenting to the emergency room with chief complaint of cough with blood. Patient states he has recently had 2 bouts of viral infections which he believes he contracted from his daughter. He states that for the past week he has at times had coughing fits where he has coughed up blood. He states that he had been doing better today until he used his vape pen when he coughed and there was again blood. He denies any excessive gum bleeding bruising or problems with bleeding other than this. 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 He states that he is no longer on the beta-edmund either because he could not tolerate it. He states he is post to see oral surgery for gingival surgery. Patient denies any weight loss. No reported fevers. He denies any epistaxis. He denies any black or tarry stools. PFSH PFS Medical History Smoker Marijuana smoker Hypertension Home Medications ?Medication ?Instructions ?Recorded ?Last Taken ?Type lisinopril 10 mg tablet 10 mg PO DAILY #30 tabs 07/22/19 Unknown Rx amoxicillin 875 mg-potassium 875 mg PO Q12H #20 TABLETS 05/15/24 Unknown Rx clavulanate 125 mg tablet doxycycline monohydrate 100 mg 100 mg PO BID #20 CAPSULES 05/15/24 Unknown Rx capsule Allergy/AdvReac Type Severity Reaction Status Date / Time sulfamethoxazole (From Allergy Shortness Verified 05/15/24 10:41 Sept) of breath trimethoprim (From ) Allergy Shortness Verified 05/15/24 10:41 of breath Family History no significant family his Social History household members: spouse housing: house Smoking Status: Current every day smoker tobacco type: cigarettes ROS ROS ED Constitutional Constitutional ED: Denies chills or weight loss Eyes Eyes: Denies change in vision or diplopia ENT ENT ED: Reports other Details: See history of present illness ; Denies ear pain, rhinorrhea or sore throat Cardiovascular Cardiovascular: Denies chest pain, orthopnea, palpitations or racing heartbeat Respiratory/Chest Respiratory/Chest: Reports cough and other Details: Reported hemoptysis ; Denies dyspnea or orthopnea Gastrointestinal Gastrointestinal: Denies abdominal pain, diarrhea, nausea or vomiting Genitourinary Genitourinary ED: Denies dysuria, hematuria or urinary frequency Musculoskeletal Musculoskeletal: Denies arthralgias or myalgias Integumentary Denies abscess or rash Neurologic Neurologic: Denies headache(s) or weakness Psychiatric Psychiatric: Denies anxiety, depression, suicidal ideation or suicidal thoughts Endocrine Endocrinology: Denies polydipsia, polyphagia or polyuria Allergic/Immunologic Allergic/Immunologic ED: Denies mouth swelling, tongue swelling or urticaria EXAM Physical Exam Const Vital Signs: 05/15/24 10:39 05/15/24 11:07 05/15/24 13:12 Temperature 97.6 F L Temperature Source Temporal Pulse Rate 108 H 78 Respiratory Rate 16 20 H Respiratory Effort Normal Non-Labored Respiratory Depth Normal Respiratory Pattern Normal Blood Pressure 165/105 H 133/78 H Blood Pressure Mean 125 96 Pulse Ox 100 95 Oxygen Delivery Method Room Air Room Air Room Air 05/15/24 14:54 Temperature 98 F Temperature Source Pulse Rate 106 H Respiratory Rate 24 H Respiratory Effort Respiratory Depth Respiratory Pattern Blood Pressure 155/88 H Blood Pressure Mean 110 Pulse Ox 98 Oxygen Delivery Method Positive well nourished and well developed General Appearance ED: well developed and NAD HEENT Reports normocephalic, head/scalp atraumatic and moist mucous membranes HEENT Narrative: There is some evidence of gingival hyperplasia. I do not see any blood in the oropharynx or in the nose. I do not see any erythema of the tonsils. Eyes PERRL and EOMs intact bilaterally Neck no lymphadenopathy, supple and no JVD Resp normal respiratory effort and clear to auscultation bilaterally Cardio regular rate, regular rhythm and no murmurs GI normal to inspection, nondistended, normoactive bowel sounds and non-tender Palpation: soft Back/Spine no CVA tenderness and normal ROM Extremity normal to inspection General Extremety ED: Negative for edema General Extremity: Negative for edema Neuro oriented x3 and CN's II-XII intact bilaterally Sensorium / Orientation: alert Motor Exam: strength 5/5 throughout Psych mental status grossly normal Mood & Affect: Negative for depressed or tearful Skin no rashes or lesions noted and no wounds MDM MDM MDM Narrative Medical decision making narrative: Differential diagnosis includes but not limited to pulmonary embolism pneumonia epistaxis bleeding malignancy My independent interpretation of the chest x-ray is possible left-sided lung mass with infiltrate. I spoke with the patient regarding his findings and my recommendation is that we obtain a CAT scan which she is agreeable to. White count is at 10 no left shift glucose of 110 normal electrolytes. CTA demonstrates no obvious pulmonary embolism. Please see radiologist read for full discussion but there is lymphadenopathy and lung nodules/mass with opacities. Spoke with the patient regarding these findings and my concerns and expressed recommendation that he obtain follow-up. I would be placing him on Augmentin and doxycycline. We discussed follow-up and I can refer him to pulmonology. Unfortunately there is nobody on for pulmonology unassigned at this time. I will give him their name and number. He tells me that complicating this picture is that he has been snorting pills. He understands that this could be cancer versus pneumonia versus granulomatous disease versus other. He is going to refrain from drug use and follow-up return if worsening he and his family note understanding History & Record Review Discussion w/independent historian: Patient and Family Lab Data Attestation: I reviewed the patient's lab results. Labs: Laboratory Results - last 24 hr 05/15/24 12:18 WBC 10.0 RBC 5.50 Hgb 16.5 Hct 50.6 MCV 92.0 MCH 30.0 MCHC 32.6 RDW Std Deviation 46.0 H RDW Coeff of Lui 13.3 Plt Count 238 MPV 10.6 Immature Gran % (Auto) 0.200 Neut % (Auto) 66.4 Lymph % (Auto) 25.0 [place] % (Auto) 6.6 Eos % (Auto) 1.1 Baso % (Auto) 0.7 Absolute Neuts (auto) 6.7 Absolute Lymphs (auto) 2.50 Nucleated RBC % 0 Sodium 140 Potassium 3.4 L Chloride 106 Carbon Dioxide 29.0 Anion Gap 5 BUN 11 Creatinine 0.87 Estim Creat Clear Calc 148.15 Est GFR (MDRD) Af Amer 125 Est GFR (MDRD) Non-Af 104 BUN/Creatinine Ratio 12.6 Glucose 110 H Calcium 9.4 Radiography Diagnostic Testing: Clinical Impression(s) from Imaging Studies Chest X-Ray 05/15/24 11:33 IMPRESSION: Mild left basilar opacity, concerning for pneumonia. Electronically Signed: Maria Antonia Santiago MD at 12:08 EDT , Chest CTA 05/15/24 12:03 IMPRESSION: Bilateral spiculated lower lobe pulmonary nodules with a 2.8 cm left lower lobe mass, surrounding groundglass opacities, mild left hilar, and mediastinal lymphadenopathy. Diagnostic considerations include infection, neoplasm, or atypical presentation of granulomatous disease such as sarcoidosis. Recommend close short-term interval follow-up, correlation with PET-CT, tissue diagnosis, and/or refer for further clinical evaluation. No evidence of pulmonary embolism. Electronically Signed: Maria Antonia Santiago MD at 14:17 EDT , Discharge Plan Triage Chief Complaint: Cough ED Provider: Markel Wayne Dx/Rx/DC Orders Clinical Impression: Cough with hemoptysis, Lymphadenopathy, mediastinal, Lung mass Prescriptions: New doxycycline monohydrate 100 mg capsule 100 mg PO BID Qty: 20 0RF amoxicillin-pot clavulanate 875-125 mg tablet 875 mg PO Q12H Qty: 20 0RF No Action lisinopril 10 MG tablet 10 mg PO DAILY Qty: 30 0RF Primary Care Provider: Valeriy Valente NP Referrals: Robin Cannon DO [Med Staff - Active Staff] - As soon as possible (for pulmonology) Valeriy Valente NP, [facility] [Primary Care Provider] - 1 Week Print Language: Romanian Disposition Disposition: Home, Self Care Discharge Date/Time: 05/15/24 14:55
--- NOTE | 2024-05-15 12:03 | CT_ITS ---
HISTORY: hemoptysis abnormal chest xray. TECHNIQUE: CT angiogram of the chest was performed after the intravenous administration of 100 mL Isovue-370. Post-processing of the angiographic images was performed with multiplanar reformation and 3D reconstruction. Individualized dose optimization techniques were used for this CT. 1336 images. COMPARISON: None. FINDINGS: CENTRAL AIRWAYS: Patent. LUNGS: 10 mm right lower lobe spiculated nodule. 12 mm spiculated and lobulated left lower lobe nodule adjacent to the fissure. Mild tree-in-bud nodular and groundglass opacities in the left lower lobe. 2.8 cm spiculated pleural-based mass or masslike consolidation in the left lower lobe laterally with a 3 mm satellite nodule more anteriorly. Mild groundglass opacity surrounding the bilateral lower lobe nodules. PLEURA: No pneumothorax or significant pleural effusion. HEART/PERICARDIUM: Heart within normal limits in size. No pericardial effusion. PULMONARY ARTERIES: No filling defect. AORTA/VESSELS: No thoracic aortic aneurysm or dissection flap. MEDIASTINUM/CHRIS: Subcarinal and left hilar lymph nodes measuring up to 1.8 cm. OSSEOUS STRUCTURES: Intact. UPPER ABDOMEN: Hepatic steatosis. CT/CTA Chest W/WO Contrast IMPRESSION: Bilateral spiculated lower lobe pulmonary nodules with a 2.8 cm left lower lobe mass, surrounding groundglass opacities, mild left hilar, and mediastinal lymphadenopathy. Diagnostic considerations include infection, neoplasm, or atypical presentation of granulomatous disease such as sarcoidosis. Recommend close short-term interval follow-up, correlation with PET-CT, tissue diagnosis, and/or refer for further clinical evaluation. No evidence of pulmonary embolism. Electronically Signed: Maria Antonia Santiago MD at 14:17 EDT ,
[2024-05-15 12:27] LABS: Absolute Neutrophil Count 6.7 X10^3/uL (2.0-7.7); Basophil# 0.07 X10^3/uL; Basophil% 0.7 % (0-1); Eosinophil# 0.11 X10^3/uL; Eosinophils% 1.1 % (0-5); Hematocrit 50.6 % (40-54); Hemoglobin 16.5 g/dL (13.0-16.5); Mean Corp Hgb Conc 32.6 g/dL (32-36); Mean Platelet Vol. 10.6 fl (6.2-12.0); Monocyte# 0.66 X10^3/uL; Monocyte% 6.6 % (0-10); NRBC Flagged by Analyzer 0 % (0-5); Neutrophil # 6.65 X10^3/uL (2.7-7.7); Neutrophil % 66.4 % (47-70); Platelet Count 238 K/mm3 (150-450); RBC Distribution Width CV 13.3 % (11.6-14.6)
[2024-05-15 13:00] LABS: Anion Gap 5 (5-15); BUN 11 mg/dL (7-18); BUN/Creat Ratio 12.6 RATIO (10-20); Calcium,Total 9.4 mg/dL (8.5-10.1); Chloride 106 mmol/L (98-107); Creatinine, Serum 0.87 mg/dL (0.70-1.30); EST Glomerular Filtration Rate 104 mL/min (>60); Est Glom Filt Rate - Afr Amer 125 mL/min (>60); Estimated Creatinine Clearance 148.15 ml/min; Glucose 110 mg/dL (74-106); Potassium 3.4 mmol/L (3.5-5.1); Sodium Level 140 mmol/L (136-145)
[2024-05-15 13:12] VITALS: BP 133/78; PULSE 78; RESP 20; O2SAT 95
[2024-05-15 14:54] VITALS: BP 155/88; PULSE 106; RESP 24; TEMP 36.6; O2SAT 98
== END 2024-05-15 14:55 | disposition home or self-care (01) ==
PROVIDERS: Emergency Provider Emergency Medicine; PCP Nurse Practitioner Family; Visit Provider Emergency Medicine
DX: R04.2 Hemoptysis (principal); R59.0 Localized enlarged lymph nodes; F17.210 Nicotine dependence, cigarettes, uncomplicated; R05.9 Cough, unspecified; R91.8 Other nonspecific abnormal finding of lung field
CPT/HCPCS: 71046; 71275; 80048; 85025; 99282; Q9967

== ENCOUNTER → 2024-07-25 | Outpatient (CLI) | payer MEDICAID, SELFPAY ==
--- NOTE | 2024-07-25 13:13 | CT_ITS ---
INDICATION: Lung nodules EXAMINATION: CT CHEST WITHOUT CONTRAST - CT Chest W/O Contrast Injection TECHNIQUE: Helically acquired images were obtained of the chest. A radiation dose optimization technique was used for this scan. IV Contrast dosage and agent: None. COMPARISON: 05/15/2024 FINDINGS: LUNGS, PLEURA AND LARGE AIRWAYS: No masses, consolidation, or edema. No pleural effusion or thickening. No pneumothorax. THYROID: No thyroid lesions. HEART AND PERICARDIUM: Heart size is normal. No pericardial effusion. CORONARY ARTERIES: Coronary artery calcification is seen. VESSELS: Thoracic aorta is not dilated. MEDIASTINUM AND CHRIS: No mediastinal or hilar adenopathy. Esophagus is unremarkable. No hiatal hernia. UPPER ABDOMEN: No acute pathology. BONES: No suspicious lytic or blastic abnormality. CT/Chest without Contrast IMPRESSION: Negative CT chest without contrast. Interval resolution of bilateral nodules consistent with resolved atypical pneumonia. Electronically Signed: Valeriy Card MD at 12:38 EST ,
== END | disposition home or self-care (01) ==
PROVIDERS: Referring Provider Internal Medicine Critical Care Medicine; Visit Provider Internal Medicine Critical Care Medicine
DX: R93.89 Abnormal findings on diagnostic imaging of other specified body structures (principal)
CPT/HCPCS: 71250